=== PATIENT | female | born 1960 | race Two or more races ===

== ENCOUNTER 2020-06-29 13:05 | Outpatient (REF) | payer MEDICAID, SELFPAY ==
[2020-06-29 15:14] LABS: MANUAL DIFF FLAG NO
[2020-06-29 15:17] LABS: Basophils Absolute Auto 0.1 X10*3/uL (0.0-0.2); Basophils Percent Auto 0.4 % (0-2); Eosinophils Absolute Auto 0.2 X10*3/uL (0.0-0.4); Eosinophils Percent Auto 1.1 % (0-4); Hematocrit 47.2 % (37-47); Imm Gran Abs Auto 0.16 X10*3/uL (0.00-0.03); Imm Gran Pct Auto 0.8 % (0.0-0.4); Lymphocytes Percent Auto 26.3 % (20-40); Mean Corpuscular HGB Conc 33.9 g/dl (31.0-35.0); Mean Corpuscular Hemoglobin 29.1 pg (27.0-33.0); Mean Platelet Volume 9.5 fL (9.4-12.3); Monocytes Absolute Auto 1.2 X10*3/uL (0.1-1.2); Monocytes Percent Auto 6.1 % (2-11); Neutrophils Absolute Auto 12.4 X10*3/uL (2.0-8.3); Neutrophils Percent Auto 65.3 % (45-73); Platelet Count 297 X10*3/uL (160-400); Red Blood Count 5.49 X10*6/uL (4.20-5.50); Red Cell Distribution Width 12.5 % (11.0-16.0); White Blood Count 18.9 X10*3/uL (4.8-10.8)
[2020-06-29 15:42] LABS: Alanine Aminotransferase 17 U/L (0-31); Albumin Level 4.3 g/dL (3.5-5.0); Alkaline Phosphatase 77 U/L (39-117); Anion Gap 14 (12-20); Aspartate Amino Transferase 13 U/L (5-31); Bilirubin Direct 0.3 mg/dL (0.0-0.5); Bilirubin Total 0.8 mg/dL (0.0-1.0); Blood Urea Nitrogen 27 mg/dL (9-16); Calcium 9.7 mg/dL (8.4-10.2); Carbon Dioxide 31 mmol/L (22-29); Chloride 96 mmol/L (96-108); Estimated Glomerular Filt Rate 47; Glucose Random 187 mg/dL (60-115); Potassium 3.8 mmol/L (3.3-5.1); Sodium 137 mmol/L (135-145); Total Protein 7.1 g/dL (6.5-8.0)
[2020-06-30 04:31] LABS: HBS Num1 0.26 mIU/mL (0-7.99); HBc Num1 0.06 S/CO (0.00-0.79); HIV AB/AG Nonreactive (Nonreactive); HIV Num 1 0.04 S/CO (0.00-0.99); Hepatitis B Core Antibody Nonreactive (Nonreactive); ~HepC Num1 0.17 S/CO (0.00-0.79); ~Hepatitis B Surface Antibody NONREACTIVE (Nonreactive); ~Hepatitis C Antibody Nonreactive (Nonreactive)
[2020-06-30 04:50] LABS: HBsAGNum1 0.13 S/CO (0.00-0.99); Hepatitis B Surface Antigen Negative (Negative)
[2020-07-01 08:18] LABS: Hepatitis A Antibody IgG REACTIVE (Nonreactive); ~Hepatitis A Antibody IgG 14.73 S/CO (0.00-0.99)
[2020-07-01 22:02] LABS: TS Negative Control Passed; TS Panel A 0; TS Panel B 0; TS Positive Control Passed; TSpotTB Negative (SeeBelow)
== END 2020-06-29 13:06 | disposition home or self-care (01) ==
LOC: HO.LAB 13:05
PROVIDERS: PCP Family Medicine; Visit Provider Internal Medicine
DX: F11.99 Opioid use, unspecified with unspecified opioid-induced disorder (principal); E11.9 Type 2 diabetes mellitus without complications; E78.00 Pure hypercholesterolemia, unspecified; Z88.8 Allergy status to other drugs, medicaments and biological substances; Z79.82 Long term (current) use of aspirin; Z79.84 Long term (current) use of oral hypoglycemic drugs; Z79.899 Other long term (current) drug therapy; Z51.81 Encounter for therapeutic drug level monitoring
CPT/HCPCS: 36415; 80048; 80076; 80305; 85025; 86481; 86704; 86706; 86708; 86803; 87340; 87389; 99202

== ENCOUNTER → 2020-07-06 13:28 | Outpatient (BNVA) | payer MEDICAID, SELFPAY | PROVIDERS: Visit Provider Internal Medicine | DX: F11.99 Opioid use, unspecified with unspecified opioid-induced disorder (principal); D72.829 Elevated white blood cell count, unspecified; R76.8 Other specified abnormal immunological findings in serum; Z78.9 Other specified health status | CPT/HCPCS: 80305; 99212 ==

== ENCOUNTER → 2020-07-13 10:57 | Outpatient (BNVA) | payer MEDICAID, SELFPAY | PROVIDERS: Visit Provider Internal Medicine | DX: F11.99 Opioid use, unspecified with unspecified opioid-induced disorder (principal); Z51.81 Encounter for therapeutic drug level monitoring; Z78.9 Other specified health status; Z79.899 Other long term (current) drug therapy | CPT/HCPCS: 80305; 90471; 90746; 99212 ==

== ENCOUNTER → 2020-07-20 11:10 | Outpatient (BNVA) | payer MEDICAID, SELFPAY | PROVIDERS: Visit Provider Internal Medicine | DX: F11.99 Opioid use, unspecified with unspecified opioid-induced disorder (principal); Z51.81 Encounter for therapeutic drug level monitoring; Z78.9 Other specified health status; Z79.899 Other long term (current) drug therapy | CPT/HCPCS: 80305; 99212 ==

== ENCOUNTER → 2020-08-03 11:24 | Outpatient (BNVA) | payer MEDICAID, SELFPAY | PROVIDERS: PCP Family Medicine; Visit Provider Internal Medicine | DX: F11.99 Opioid use, unspecified with unspecified opioid-induced disorder (principal) | CPT/HCPCS: 80305; 99212 ==

== ENCOUNTER → 2020-08-17 11:01 | Outpatient (BNVA) | payer MEDICAID, SELFPAY | PROVIDERS: PCP Family Medicine; Visit Provider Internal Medicine | DX: F11.99 Opioid use, unspecified with unspecified opioid-induced disorder (principal) | CPT/HCPCS: 80305; 99212 ==

== ENCOUNTER → 2020-08-31 11:15 | Outpatient (BNVA) | payer MEDICAID, SELFPAY | PROVIDERS: PCP Family Medicine; Visit Provider Internal Medicine | DX: Z51.81 Encounter for therapeutic drug level monitoring (principal); F11.99 Opioid use, unspecified with unspecified opioid-induced disorder | CPT/HCPCS: 80305; 90471; 90746; 99211 ==

== ENCOUNTER → 2020-09-14 11:02 | Outpatient (BNVA) | payer MEDICAID, SELFPAY | PROVIDERS: Visit Provider Internal Medicine | DX: F11.20 Opioid dependence, uncomplicated (principal); Z51.81 Encounter for therapeutic drug level monitoring; Z79.899 Other long term (current) drug therapy | CPT/HCPCS: 80305; 99212 ==

== ENCOUNTER → 2020-09-28 11:08 | Outpatient (BNVA) | payer MEDICAID, SELFPAY | PROVIDERS: Visit Provider Internal Medicine | DX: F11.99 Opioid use, unspecified with unspecified opioid-induced disorder (principal) | CPT/HCPCS: 80305; 99211 ==

== ENCOUNTER → 2020-10-19 11:08 | Outpatient (BNVA) | payer MEDICAID, SELFPAY | PROVIDERS: PCP Family Medicine; Visit Provider Internal Medicine | DX: F11.99 Opioid use, unspecified with unspecified opioid-induced disorder (principal); Z23 Encounter for immunization; Z78.9 Other specified health status | CPT/HCPCS: 80305; 90471; 90746; 99211 ==

== ENCOUNTER → 2020-11-11 11:35 | Outpatient (BNVA) | payer MEDICAID, SELFPAY | PROVIDERS: PCP Family Medicine; Visit Provider Internal Medicine | DX: F11.99 Opioid use, unspecified with unspecified opioid-induced disorder (principal) | CPT/HCPCS: 80305; 99212 ==

== ENCOUNTER → 2020-12-16 11:15 | Outpatient (BNVA) | payer MEDICAID, SELFPAY | PROVIDERS: PCP Family Medicine; Visit Provider Internal Medicine | DX: Z51.81 Encounter for therapeutic drug level monitoring (principal) | CPT/HCPCS: 80305; 99211 ==

== ENCOUNTER → 2021-01-04 14:01 | Outpatient (BNVA) | payer MEDICAID, SELFPAY | PROVIDERS: PCP Family Medicine; Visit Provider Internal Medicine ==

== ENCOUNTER → 2021-01-18 11:10 | Outpatient (BNVA) | payer MEDICAID, SELFPAY | PROVIDERS: Visit Provider Internal Medicine | DX: Z51.81 Encounter for therapeutic drug level monitoring (principal); F14.10 Cocaine abuse, uncomplicated; F11.90 Opioid use, unspecified, uncomplicated | CPT/HCPCS: 80305; 99212 ==

== ENCOUNTER → 2021-02-12 11:33 | Outpatient (BNVA) | payer MEDICAID, SELFPAY | PROVIDERS: Visit Provider Internal Medicine | DX: F11.90 Opioid use, unspecified, uncomplicated (principal) | CPT/HCPCS: 80305; 99212 ==

== ENCOUNTER 2021-03-12 10:56 | Outpatient (REF) | payer MEDICAID, SELFPAY ==
[2021-03-12 18:25] LABS: Fentanyl, urine Not Detected (Not Detect)
== END 2021-03-12 10:57 | disposition home or self-care (01) ==
LOC: HO.LNP 10:56
PROVIDERS: Visit Provider Internal Medicine
DX: F11.20 Opioid dependence, uncomplicated (principal)
CPT/HCPCS: 80305; 80307; 99212

== ENCOUNTER → 2021-04-12 11:33 | Outpatient (BNVA) | payer MEDICAID, SELFPAY | PROVIDERS: Visit Provider Internal Medicine | DX: Z51.81 Encounter for therapeutic drug level monitoring (principal); F14.90 Cocaine use, unspecified, uncomplicated; F11.90 Opioid use, unspecified, uncomplicated | CPT/HCPCS: 80305; 99212 ==

== ENCOUNTER → 2021-05-10 10:54 | Outpatient (BNVA) | payer MEDICAID, SELFPAY | DX: Z51.81 Encounter for therapeutic drug level monitoring (principal); F11.20 Opioid dependence, uncomplicated | CPT/HCPCS: 80305; 99211 ==

== ENCOUNTER → 2021-06-07 11:13 | Outpatient (BNVA) | payer MEDICAID, SELFPAY | PROVIDERS: Visit Provider Internal Medicine | DX: F11.20 Opioid dependence, uncomplicated (principal) | CPT/HCPCS: 80305 ==

== ENCOUNTER → 2021-07-06 09:09 | Outpatient (BNVA) | payer MEDICAID, SELFPAY | PROVIDERS: Visit Provider Internal Medicine | DX: F11.20 Opioid dependence, uncomplicated (principal) | CPT/HCPCS: 80305 ==

== ENCOUNTER → 2021-08-04 10:50 | Outpatient (BNVA) | payer MEDICAID, SELFPAY | PROVIDERS: Visit Provider Internal Medicine | DX: Z51.81 Encounter for therapeutic drug level monitoring (principal); F11.20 Opioid dependence, uncomplicated | CPT/HCPCS: 80305; 99211 ==

== ENCOUNTER → 2021-08-31 11:03 | Outpatient (BNVA) | payer MEDICAID, SELFPAY | PROVIDERS: Visit Provider Internal Medicine | DX: F11.20 Opioid dependence, uncomplicated (principal); F14.90 Cocaine use, unspecified, uncomplicated | CPT/HCPCS: 80305; 99212 ==

== ENCOUNTER → 2021-09-28 11:07 | Outpatient (BNVA) | payer MEDICAID, SELFPAY | PROVIDERS: Visit Provider Internal Medicine | DX: Z51.81 Encounter for therapeutic drug level monitoring (principal); F11.20 Opioid dependence, uncomplicated | CPT/HCPCS: 80305; 99212 ==

== ENCOUNTER → 2021-10-26 10:56 | Outpatient (BNVA) | payer MEDICAID, SELFPAY | PROVIDERS: PCP Family Medicine; Visit Provider Internal Medicine | DX: F11.20 Opioid dependence, uncomplicated (principal) | CPT/HCPCS: 80305; 99212 ==

== ENCOUNTER → 2021-11-23 10:59 | Outpatient (BNVA) | payer MEDICAID, SELFPAY | PROVIDERS: PCP Family Medicine; Visit Provider Internal Medicine | DX: F11.20 Opioid dependence, uncomplicated (principal) | CPT/HCPCS: 80305; 99212 ==

== ENCOUNTER → 2021-12-27 11:39 | Outpatient (BNVA) | payer MEDICAID, SELFPAY | PROVIDERS: Visit Provider Internal Medicine | DX: F11.99 Opioid use, unspecified with unspecified opioid-induced disorder (principal); K59.00 Constipation, unspecified; Z51.81 Encounter for therapeutic drug level monitoring; Z71.51 Drug abuse counseling and surveillance of drug abuser | CPT/HCPCS: 99212 ==

== ENCOUNTER → 2022-02-02 11:03 | Outpatient (BNVA) | payer MEDICAID, SELFPAY | PROVIDERS: Visit Provider Internal Medicine | DX: Z51.81 Encounter for therapeutic drug level monitoring (principal); F11.20 Opioid dependence, uncomplicated | CPT/HCPCS: 99212 ==

== ENCOUNTER → 2022-04-05 11:19 | Outpatient (BNVA) | payer MEDICAID, SELFPAY | PROVIDERS: PCP Family Medicine; Visit Provider Nurse Practitioner Psychiatric/Mental Health | DX: F11.20 Opioid dependence, uncomplicated (principal) | CPT/HCPCS: 99212 ==

== ENCOUNTER → 2022-05-03 11:21 | Outpatient (BNVA) | payer MEDICAID, SELFPAY | PROVIDERS: PCP Family Medicine; Visit Provider Nurse Practitioner Psychiatric/Mental Health | DX: F11.20 Opioid dependence, uncomplicated (principal); F14.20 Cocaine dependence, uncomplicated; F17.210 Nicotine dependence, cigarettes, uncomplicated; E11.9 Type 2 diabetes mellitus without complications; E78.00 Pure hypercholesterolemia, unspecified; Z79.899 Other long term (current) drug therapy; Z51.81 Encounter for therapeutic drug level monitoring | CPT/HCPCS: 99212 ==

== ENCOUNTER → 2022-05-31 11:40 | Outpatient (BNVA) | payer MEDICAID, SELFPAY | PROVIDERS: PCP Family Medicine; Visit Provider Nurse Practitioner Psychiatric/Mental Health | DX: F11.20 Opioid dependence, uncomplicated (principal); F14.10 Cocaine abuse, uncomplicated | CPT/HCPCS: 80305; 99212 ==

== ENCOUNTER → 2022-07-06 11:52 | Outpatient (BNVA) | payer MEDICAID, SELFPAY | PROVIDERS: PCP Family Medicine; Visit Provider Nurse Practitioner Psychiatric/Mental Health | DX: F11.20 Opioid dependence, uncomplicated (principal); F14.10 Cocaine abuse, uncomplicated | CPT/HCPCS: 99212 ==

== ENCOUNTER → 2022-08-08 11:42 | Outpatient (BNVA) | payer OTHER, SELFPAY | PROVIDERS: PCP Family Medicine; Visit Provider Nurse Practitioner Psychiatric/Mental Health | DX: Z51.81 Encounter for therapeutic drug level monitoring (principal); F11.20 Opioid dependence, uncomplicated | CPT/HCPCS: 80305; 99212 ==

== ENCOUNTER → 2022-10-04 11:20 | Outpatient (BNVA) | payer OTHER, SELFPAY | PROVIDERS: PCP Family Medicine; Visit Provider Nurse Practitioner Psychiatric/Mental Health | DX: F11.20 Opioid dependence, uncomplicated (principal); F14.90 Cocaine use, unspecified, uncomplicated | CPT/HCPCS: 80305; 99212 ==

== ENCOUNTER 2022-12-02 11:23 | Outpatient (AMB) | payer OTHER, SELFPAY ==
--- NOTE | 2022-12-02 11:25 | A.OFFVIS_ITS ---
Intake Vital Signs 12/02/22 11:31 BP 128/72 Blood Pressure Location Lt radial Position Sitting Pulse 92 Pulse Source Pulse Oximeter Pulse Oximetry (%) 97 Oxygen Delivery Method Room Air Intake Visit Reasons: MAT Visit Intake Note: the patient presents for a mat visit Waistband Setter Required: No Allergies lorazepam Allergy (Mild, Verified 12/02/22 11:32) Itching, rash Do you need a note to return to daycare/school/sports/work: No HPI MAT Visit HPI Details Pt presents for OUD treatment follow up Currently being prescribed Suboxone 8mg BID Denies any side effects related to medication Doing well with recovery [facility] Medical History Cocaine use disorder Diabetes Hepatitis A antibody positive Hypercholesterolemia Leukocytosis Not immune to hepatitis B virus Opioid use disorder Social History Alcohol intake: never Cigarettes Per Day: 8 Years Smoked: 40 Review of Systems Const Reports as per HPI and Reports no additional complaints Physical Exam Vital Signs: Last Vital Signs Pulse 92 12/02/22 11:31 BP 128/72 12/02/22 11:31 Pulse Ox 97 12/02/22 11:31 Oxygen Delivery Method Room Air 12/02/22 11:31 Const General: cooperative and healthy appearing Psych Appearance: well kempt Attitude: cooperative Thought content: Normal thought content present Insight: Fair insight present (Psych) Judgement: Fair judgement present (Psych) Assessment & Plan Assessment & Plan (1) Opioid use disorder: Code(s): F11.99 - Opioid use, unspecified with unspecified opioid-induced disorder Plan: * continue suboxone at current dose * risk reduction discussion related to cocaine use * follow up 8 weeks * lab work ordered --will be completed at [facility] via primary care provider Medications: Refilled buprenorphine-naloxone 8-2 mg (Suboxone) 1 film sublingual BID 60 ea 1RF 30 days Coding Level of Care Code Est Pt Level 4 (27465) Diagnoses Opioid use disorder F11.99
[2022-12-02 11:31] VITALS: BP 128/72; PULSE 92; O2SAT 97
== END 2022-12-02 11:59 | disposition home or self-care (01) ==
LOC: HO.HCC 11:23
PROVIDERS: PCP Family Medicine; Visit Provider Nurse Practitioner Psychiatric/Mental Health
DX: F11.99 Opioid use, unspecified with unspecified opioid-induced disorder (principal)
CPT/HCPCS: 99214

== ENCOUNTER → 2022-12-02 11:23 | Outpatient (BNVA) | payer OTHER, SELFPAY | PROVIDERS: PCP Family Medicine; Visit Provider Nurse Practitioner Psychiatric/Mental Health | DX: Z51.81 Encounter for therapeutic drug level monitoring (principal); F11.20 Opioid dependence, uncomplicated | CPT/HCPCS: 99212 ==

== ENCOUNTER 2023-02-06 11:07 | Outpatient (AMB) | payer OTHER, SELFPAY ==
--- NOTE | 2023-02-06 11:08 | MHC.OFFVIS ---
Intake Vital Signs 02/06/23 11:14 BP 128/70 Blood Pressure Location Lt radial Position Sitting Pulse 74 Pulse Source Pulse Oximeter Pulse Oximetry (%) 98 Oxygen Delivery Method Room Air Intake Visit Reasons: MAT Visit Intake Note: The patient presents for a mat visit Internal Controls Specialist Required: No Allergies lorazepam Allergy (Mild, Verified 02/06/23 11:09) Itching, rash Do you need a note to return to daycare/school/sports/work: No HPI MAT Visit HPI Details Patient presents for follow up Doing well with recovery Currently prescribed suboxone 8mg BID no questions or concerns at this time [facility] Medical History Cocaine use disorder Diabetes Hepatitis A antibody positive Hypercholesterolemia Leukocytosis Not immune to hepatitis B virus Opioid use disorder Social History Alcohol intake: never Cigarettes Per Day: 8 Years Smoked: 40 Review of Systems Const Reports as per HPI and Reports no additional complaints Physical Exam Vital Signs: Last Vital Signs Pulse 74 02/06/23 11:14 BP 128/70 02/06/23 11:14 Pulse Ox 98 02/06/23 11:14 Oxygen Delivery Method Room Air 02/06/23 11:14 Const General: cooperative and healthy appearing Psych Appearance: well kempt Attitude: cooperative Thought content: Normal thought content present Insight: Fair insight present (Psych) Judgement: Fair judgement present (Psych) Assessment & Plan Assessment & Plan (1) Opioid use disorder: Code(s): F11.99 - Opioid use, unspecified with unspecified opioid-induced disorder Plan: continue suboxone at current dose risk reduction discussion related to cocaine use follow up 8 weeks Medications: Refilled buprenorphine-naloxone 8-2 mg (Suboxone) 1 film sublingual BID 60 ea 1RF 30 days Coding Level of Care Code Est Pt Level 3 (63490) Diagnoses Opioid use disorder F11.99
[2023-02-06 11:14] VITALS: BP 128/70; PULSE 74; O2SAT 98
== END 2023-02-06 11:51 | disposition home or self-care (01) ==
LOC: HO.HCC 11:07
PROVIDERS: PCP Family Medicine; Visit Provider Nurse Practitioner Psychiatric/Mental Health
DX: F11.99 Opioid use, unspecified with unspecified opioid-induced disorder (principal)
CPT/HCPCS: 99213

== ENCOUNTER → 2023-02-06 11:07 | Outpatient (BNVA) | payer OTHER, SELFPAY | PROVIDERS: PCP Family Medicine; Visit Provider Nurse Practitioner Psychiatric/Mental Health | DX: Z51.81 Encounter for therapeutic drug level monitoring (principal); F11.20 Opioid dependence, uncomplicated | CPT/HCPCS: 99212 ==

== ENCOUNTER 2023-04-11 11:00 | Outpatient (AMB) | payer OTHER, SELFPAY ==
--- NOTE | 2023-04-11 11:06 | A.OFFVIS_ITS ---
Intake Vital Signs 04/11/23 11:14 BP 126/70 Blood Pressure Location Lt radial Position Sitting Pulse 94 Pulse Source Pulse Oximeter Pulse Oximetry (%) 93 Oxygen Delivery Method Room Air Intake Visit Reasons: MAT Visit Intake Note: the patient presents for a mat visit Supervisor Phosphoric Acid Required: No Allergies lorazepam Allergy (Mild, Verified 04/11/23 11:15) Itching, rash Do you need a note to return to daycare/school/sports/work: No HPI MAT Visit HPI Details Patient presents for follow up Tolerating suboxone --no side effects reported no questions or concerns at this time [facility] Medical History Cocaine use disorder Diabetes Hepatitis A antibody positive Hypercholesterolemia Leukocytosis Not immune to hepatitis B virus Opioid use disorder Social History Alcohol intake: never Cigarettes Per Day: 8 Years Smoked: 40 Review of Systems Const Reports as per HPI and Reports no additional complaints Physical Exam Vital Signs: Last Vital Signs Pulse 94 04/11/23 11:14 BP 126/70 04/11/23 11:14 Pulse Ox 93 04/11/23 11:14 Oxygen Delivery Method Room Air 04/11/23 11:14 Const General: cooperative and healthy appearing Psych Appearance: well kempt Attitude: cooperative Thought content: Normal thought content present Insight: Fair insight present (Psych) Judgement: Fair judgement present (Psych) Assessment & Plan Assessment & Plan (1) Opioid use disorder: Code(s): F11.99 - Opioid use, unspecified with unspecified opioid-induced disorder Plan: * continue suboxone at current dose * risk reduction discussion related to cocaine use * follow up 8 weeks Coding Level of Care Code Est Pt Level 3 (55350) Diagnoses Opioid use disorder F11.99
[2023-04-11 11:14] VITALS: BP 126/70; PULSE 94; O2SAT 93
== END 2023-04-11 11:52 | disposition home or self-care (01) ==
PROVIDERS: PCP Family Medicine; Visit Provider Nurse Practitioner Psychiatric/Mental Health
DX: F11.99 Opioid use, unspecified with unspecified opioid-induced disorder (principal)
CPT/HCPCS: 99213

== ENCOUNTER → 2023-04-11 11:00 | Outpatient (BNVA) | payer OTHER, SELFPAY | PROVIDERS: PCP Family Medicine; Visit Provider Nurse Practitioner Psychiatric/Mental Health | DX: F11.20 Opioid dependence, uncomplicated (principal); F14.20 Cocaine dependence, uncomplicated; F17.210 Nicotine dependence, cigarettes, uncomplicated; Z51.81 Encounter for therapeutic drug level monitoring; Z79.899 Other long term (current) drug therapy | CPT/HCPCS: 99212 ==

== ENCOUNTER 2023-07-10 13:38 | Outpatient (AMB) | payer OTHER, SELFPAY ==
[2023-07-10 13:45] VITALS: BP 130/60; PULSE 103; RESP 19; O2SAT 98
--- NOTE | 2023-07-10 13:45 | A.OFFVISCC_ITS ---
Intake Vital Signs 07/10/23 13:45 BP 130/60 Blood Pressure Location Rt radial Position Sitting Respiration 19 Pulse 103 H Pulse Source Pulse Oximeter Pulse Oximetry (%) 98 Intake Visit Reasons: mat visit Allergies lorazepam Allergy (Mild, Verified 04/11/23 11:15) Itching, rash HPI mat visit HPI Details Patient presents for follow up Currently prescribed Suboxone 8mg BID Regarding cocaine use--still using 2-3 days/week. reports that she uses test strips for her cocaine No issues related to suboxone [facility] Medical History Cocaine use disorder Diabetes Hepatitis A antibody positive Hypercholesterolemia Leukocytosis Not immune to hepatitis B virus Opioid use disorder Social History Alcohol intake: never Cigarettes Per Day: 8 Years Smoked: 40 Review of Systems Const Reports as per HPI and Reports no additional complaints Physical Exam Vital Signs: Last Vital Signs Pulse 103 H 07/10/23 13:45 Resp 19 07/10/23 13:45 BP 130/60 07/10/23 13:45 Pulse Ox 98 07/10/23 13:45 Const General: cooperative and healthy appearing Psych Appearance: well kempt Attitude: cooperative Thought content: Normal thought content present Insight: Fair insight present (Psych) Judgement: Fair judgement present (Psych) Assessment & Plan Assessment & Plan (1) Opioid use disorder: Code(s): F11.99 - Opioid use, unspecified with unspecified opioid-induced disorder Plan: * continue suboxone at current dose * risk reduction discussion related to cocaine use * follow up 8 weeks Coding Level of Care Code Est Pt Level 3 (69997) Diagnoses Opioid use disorder F11.99
== END 2023-07-10 14:17 | disposition home or self-care (01) ==
PROVIDERS: PCP Family Medicine; Visit Provider Nurse Practitioner Psychiatric/Mental Health
DX: F11.99 Opioid use, unspecified with unspecified opioid-induced disorder (principal)
CPT/HCPCS: 99213

== ENCOUNTER → 2023-07-10 13:38 | Outpatient (BNVA) | payer OTHER, SELFPAY | PROVIDERS: PCP Family Medicine; Visit Provider Nurse Practitioner Psychiatric/Mental Health | DX: F11.20 Opioid dependence, uncomplicated (principal) | CPT/HCPCS: 99212 ==

== ENCOUNTER 2023-09-11 10:51 | Outpatient (AMB) | payer OTHER, SELFPAY ==
--- NOTE | 2023-09-11 10:58 | A.OFFVISCC_ITS ---
Vital Signs 09/11/23 11:00 BP 128/74 Blood Pressure Location Lt brachial Position Sitting Pulse 73 Pulse Source Pulse Oximeter Pulse Oximetry (%) 97 Oxygen Delivery Method Room Air Intake Visit Reasons: mat visit Allergies lorazepam Allergy (Mild, Verified 09/11/23 11:00) Itching, rash HPI HPI mat visit: Details: Patient presents for follow up Currently prescribed Suboxone 8mg BID No issues related to medication Looking for new PCP --hers is in [place] and transportation is a challenge Will be going to [facility] to re-establish care Up to date with colonoscopy. has not had mammogram in [address] [facility] Medical History Cocaine use disorder Diabetes Hepatitis A antibody positive Hypercholesterolemia Leukocytosis Not immune to hepatitis B virus Opioid use disorder Social History Alcohol intake: never Cigarettes Per Day: 8 Years Smoked: 40 Review of Systems Const Reports as per HPI Physical Exam Vital Signs: Last Vital Signs Pulse 73 09/11/23 11:00 BP 128/74 09/11/23 11:00 Pulse Ox 97 09/11/23 11:00 Oxygen Delivery Method Room Air 09/11/23 11:00 Const General: cooperative and healthy appearing Psych Appearance: well kempt Attitude: cooperative Thought content: Normal thought content present Insight: Fair insight present (Psych) Judgement: Fair judgement present (Psych) Assessment & Plan Assessment & Plan (1) Opioid use disorder: Code(s): F11.99 - Opioid use, unspecified with unspecified opioid-induced disorder Category: Medical Plan: * continue suboxone at current dose * risk reduction discussion related to cocaine use -using very little /infrequently * follow up 8 weeks Medications: Refilled buprenorphine-naloxone 8-2 mg (Suboxone) 1 film sublingual BID 60 ea 1RF 30 days
[2023-09-11 11:00] VITALS: BP 128/74; PULSE 73; O2SAT 97
== END 2023-09-11 11:31 | disposition home or self-care (01) ==
PROVIDERS: PCP Family Medicine; Visit Provider Nurse Practitioner Psychiatric/Mental Health
DX: F11.99 Opioid use, unspecified with unspecified opioid-induced disorder (principal)
CPT/HCPCS: 99213

== ENCOUNTER → 2023-09-11 10:51 | Outpatient (BNVA) | payer OTHER, SELFPAY | PROVIDERS: PCP Family Medicine; Visit Provider Nurse Practitioner Psychiatric/Mental Health | DX: F11.20 Opioid dependence, uncomplicated (principal) | CPT/HCPCS: 99212 ==

== ENCOUNTER 2023-11-07 14:31 | Outpatient (AMB) | payer MEDICAID, SELFPAY ==
--- NOTE | 2023-11-07 14:31 | A.OFFVISCC_ITS ---
Vital Signs 11/07/23 14:34 BP 130/60 Blood Pressure Location Rt brachial Position Sitting Pulse Oximetry (%) 98 Oxygen Delivery Method Room Air Intake Visit Reasons: Mat visit Allergies lorazepam Allergy (Mild, Verified 09/11/23 11:00) Itching, rash HPI HPI Mat visit: Details: Patient presents for follow up Currently prescribed Suboxone 8mg BID No issues with current dose Considering changing her primary care back to [facility] as she is having transportation issues and her current PCP is in [facility] Medical History (Updated 11/07/23 @ 15:12 by Elisabeth Ibarra CNP) Cocaine use disorder Not immune to hepatitis B virus Hepatitis A antibody positive Leukocytosis Hypercholesterolemia Diabetes Opioid use disorder Social History Alcohol intake: never Cigarettes Per Day: 8 Years Smoked: 40 Review of Systems Const Reports as per HPI and Reports no additional complaints Physical Exam Vital Signs: Last Vital Signs BP 130/60 11/07/23 14:34 Pulse Ox 98 11/07/23 14:34 Oxygen Delivery Method Room Air 11/07/23 14:34 Const General: cooperative and no acute distress Nutritional Appearance: average body habitus Orientation/consciousness: patient oriented x3 Limitations: no limitations Resp Effort & Inspection: normal respiratory effort and audible wheezes (slight) Neuro General: patient oriented x3 Assessment & Plan Assessment & Plan (1) Alcohol use disorder, moderate, in sustained remission: Code(s): F10.21 - Alcohol dependence, in remission Category: Medical Plan: * continue suboxone at current dose * follow up 4 weeks * refill sent to pharmacy Medications: Refilled buprenorphine-naloxone 8-2 mg (Suboxone) 1 film sublingual BID 60 ea 1RF 30 days
[2023-11-07 14:34] VITALS: BP 130/60; O2SAT 98
== END 2023-11-07 15:10 | disposition home or self-care (01) ==
PROVIDERS: PCP Family Medicine; Visit Provider Nurse Practitioner Psychiatric/Mental Health
DX: F10.21 Alcohol dependence, in remission (principal)
CPT/HCPCS: 99213

== ENCOUNTER → 2023-11-07 14:31 | Outpatient (BNVA) | payer MEDICARE, MEDICAID, SELFPAY | PROVIDERS: PCP Family Medicine; Visit Provider Nurse Practitioner Psychiatric/Mental Health | DX: F10.21 Alcohol dependence, in remission (principal); F14.20 Cocaine dependence, uncomplicated; F11.20 Opioid dependence, uncomplicated; Z79.899 Other long term (current) drug therapy | CPT/HCPCS: 99212 ==

== ENCOUNTER 2024-01-03 14:35 | Outpatient (AMB) | payer MEDICARE, MEDICAID, SELFPAY ==
--- NOTE | 2024-01-03 14:45 | A.OFFVISCC_ITS ---
Intake Visit Reasons: Mat visit Allergies lorazepam Allergy (Mild, Verified 09/11/23 11:00) Itching, rash HPI HPI Mat visit: Details: Patient presents for follow up Currently prescribed suboxone 8mg BID Recently metformin 500mg 2 tabs BID trazodone 100mg QHS stopped lisinopril started losartan 25mg QD trulicity DM medications adjusted \ Reports feeling much better PFSH Medical History (Updated 01/12/24 @ 17:59 by Elisabeth Ibarra CNP) Hypertension Cocaine use disorder Not immune to hepatitis B virus Hepatitis A antibody positive Leukocytosis Hypercholesterolemia Diabetes Opioid use disorder Social History Alcohol intake: never Cigarettes Per Day: 8 Years Smoked: 40 Review of Systems Const Reports as per HPI and Reports no additional complaints Physical Exam Const General: cooperative, healthy appearing and well groomed Assessment & Plan Assessment & Plan (1) Opioid use disorder, moderate, in sustained remission: Code(s): F11.21 - Opioid dependence, in remission Category: Medical Plan: * continue suboxone at current dose * risk reduction discussion related to cocaine * BP machine ordered as previous rx not covered by insurance Medications: New blood pressure monitor As directed 1 ea 0RF I10 - Essential (primary) hypertension Refilled buprenorphine-naloxone 8-2 mg (Suboxone) 1 film sublingual BID 60 ea 2RF 30 days
== END 2024-01-03 15:24 | disposition home or self-care (01) ==
PROVIDERS: PCP Family Medicine; Visit Provider Nurse Practitioner Psychiatric/Mental Health
DX: F11.21 Opioid dependence, in remission (principal)
CPT/HCPCS: 99214

== ENCOUNTER → 2024-01-03 14:35 | Outpatient (BNVA) | payer MEDICARE, MEDICAID, SELFPAY | PROVIDERS: PCP Family Medicine; Visit Provider Nurse Practitioner Psychiatric/Mental Health | DX: F11.21 Opioid dependence, in remission (principal); Z51.81 Encounter for therapeutic drug level monitoring; Z79.84 Long term (current) use of oral hypoglycemic drugs; Z79.899 Other long term (current) drug therapy | CPT/HCPCS: 99212 ==

== ENCOUNTER 2024-03-25 14:55 | Outpatient (AMB) | payer MEDICARE, MEDICAID, SELFPAY ==
[2024-03-25 15:02] VITALS: BP 140/85
--- NOTE | 2024-03-25 15:02 | MHC.AM.SUB ---
Vital Signs 03/25/24 15:02 BP 140/85 H Intake Visit Reasons: Mat visit Allergies lorazepam Allergy (Mild, Verified 09/11/23 11:00) Itching, rash HPI HPI Mat visit: Details: Patient presents for follow up Currently prescribed Suboxone 8mg BID No issues related to medication looking for new PCP walked to appt today and I am so happy I did, I needed that Review of Systems Const Reports as per HPI Physical Exam Vital Signs: Last Vital Signs BP 140/85 H 03/25/24 15:02 Const General: cooperative, healthy appearing and well groomed Psych Appearance: well kempt Speech and movement: Normal speech and movement present Affect: normal affect Attitude: cooperative Thought process: Circumstantial thought process present Thought content: Normal thought content present Insight: Fair insight present (Psych) Judgement: Good judgement present (Psych) Assessment & Plan Assessment & Plan (1) Opioid use disorder, moderate, in sustained remission: Code(s): F11.21 - Opioid dependence, in remission Category: Medical Plan: continue suboxone at current dose follow up 3 months labs ordered today Orders: Orders Comprehensive Met. Panel 03/26/24 Z79.899 - Other meterman (current) drug therapy [facility] Medical History (Updated 01/12/24 @ 17:59 by Elisabeth Ibarra CNP) Hypertension Cocaine use disorder Not immune to hepatitis B virus Hepatitis A antibody positive Leukocytosis Hypercholesterolemia Diabetes Opioid use disorder Social History Alcohol intake: never Cigarettes Per Day: 8 Years Smoked: 40
== END 2024-03-25 15:28 | disposition home or self-care (01) ==
PROVIDERS: PCP Family Medicine; Visit Provider Nurse Practitioner Psychiatric/Mental Health
DX: F11.21 Opioid dependence, in remission (principal)
CPT/HCPCS: 99213

== ENCOUNTER 2024-03-25 14:55 | Outpatient (REF) | payer MEDICARE, MEDICAID, SELFPAY | END 2024-03-25 14:56 | disposition home or self-care (01) | LOC: HO.LAB 14:55 | PROVIDERS: PCP Family Medicine; Visit Provider Nurse Practitioner Psychiatric/Mental Health | DX: F11.20 Opioid dependence, uncomplicated (principal) | CPT/HCPCS: 99212 ==

== ENCOUNTER 2024-03-26 08:55 | Outpatient (REF) | payer MEDICARE, MEDICAID, SELFPAY ==
[2024-03-26 11:06] LABS: Alanine Aminotransferase 15 U/L (0-31); Alkaline Phosphatase 102 U/L (39-117); Anion Gap 9 (12-20); Aspartate Amino Transferase 15 U/L (5-31); Bilirubin Total 0.5 mg/dL (0.0-1.0); Blood Urea Nitrogen 15 mg/dL (9-16); Carbon Dioxide 35 mmol/L (22-29); Chloride 100 mmol/L (96-108); Estimated Glomerular Filt Rate > 60; Glucose Random 154 mg/dL (60-115); Potassium 4.4 mmol/L (3.3-5.1); Sodium 140 mmol/L (135-145); Total Protein 7.4 g/dL (6.5-8.0)
== END 2024-03-26 08:56 | disposition home or self-care (01) ==
LOC: HO.LAB 08:55
PROVIDERS: PCP Family Medicine; Visit Provider Nurse Practitioner Psychiatric/Mental Health
DX: Z79.899 Other long term (current) drug therapy (principal)
CPT/HCPCS: 36415; 80053

== ENCOUNTER 2024-07-05 09:18 | Outpatient (AMB) | payer MEDICARE, MEDICAID, SELFPAY ==
[2024-07-05 09:23] VITALS: BP 140/80; PULSE 88; O2SAT 92
--- NOTE | 2024-07-05 09:23 | MHC.AM.SUB ---
Vital Signs 07/05/24 09:23 BP 140/80 H Blood Pressure Location Rt brachial Position Sitting Pulse 88 Pulse Source Pulse Oximeter Pulse Oximetry (%) 92 Oxygen Delivery Method Room Air Intake Visit Reasons: MAT visit Allergies lorazepam Allergy (Mild, Verified 09/11/23 11:00) Itching, rash HPI HPI MAT visit: Details: Patient presents for follow up Currently prescribed Suboxone 8mg BID Due to insurance change, formulation had to change from films to tabs Reviewed with patient, that tabs are also SL Diabetes management improving patient becoming more familiar with sx of hypoglyciemia Review of Systems Const Reports as per HPI and Reports no additional complaints Physical Exam Vital Signs: Last Vital Signs Pulse 88 07/05/24 09:23 BP 140/80 H 07/05/24 09:23 Pulse Ox 92 07/05/24 09:23 Oxygen Delivery Method Room Air 07/05/24 09:23 Const General: cooperative, healthy appearing and well groomed Psych Appearance: well kempt Speech and movement: Normal speech and movement present Affect: normal affect Attitude: cooperative Thought process: Circumstantial thought process present Thought content: Normal thought content present Insight: Fair insight present (Psych) Judgement: Good judgement present (Psych) [facility] Medical History (Updated 01/12/24 @ 17:59 by Elisabeth Ibarra CNP) Hypertension Cocaine use disorder Not immune to hepatitis B virus Hepatitis A antibody positive Leukocytosis Hypercholesterolemia Diabetes Opioid use disorder Social History Alcohol intake: never Cigarettes Per Day: 8 Years Smoked: 40 Assessment & Plan Assessment & Plan (1) Opioid use disorder, moderate, in sustained remission: Code(s): F11.21 - Opioid dependence, in remission Category: Medical Plan: continue suboxone at current dose follow up 3 months
--- OUTSIDE RECORDS SUMMARY | 2024-07-05 09:54 | XMS_ITS | Clinical Summary ---
Author Organization [facility] it Address [address] [place] [address] Care Team Providers Care Payroll Accounting Specialist Name Role Phone Unavailable Primary Care Provider Unavailabl e Social History Tobacco Use Types Packs/Day Years Used Date Smoking Tobacco: Never Assessed Comments Unknown Sex and Gender Information Value Date Recorded Sex Assigned at Not on file Legal Sex Female 2:26 PM EST Gender Identity Not on file Sexual Orientation Not on file Plan of Treatment Health Maintenance Due Date Last Done Comments Breast Cancer Screening 1960 DTaP,Tdap,and Td Vaccines (1 - Tdap) 1977 Cervical Cancer Screening: P ap Smear 10/23/1979 Pneumococcal Vaccine: 50+ Ye ars (1 of 1 - PCV) 2008 Zoster Vaccines (1 of 2) 2008 COVID-19 Vaccine ( - 2023-2 5 season) 2024 Influenza Vaccine (#1) 2024 RSV Immunization Patients 60 + Years Old (1 - 1-dose 75+ series) 2033 HIB Vaccines Aged Out No longer eligi ble based on patient's age to complete this topic HPV Vaccines Aged Out No longer eligi ble based on patient's age to complete this topic Hepatitis A Vaccines Aged Out No long er eligible based on patient's age to complete this topic Hepatitis B Vaccines Aged Out No long er eligible based on patient's age to complete this topic IPV Vaccines Aged Out No longer eligi ble based on patient's age to complete this topic MMR Vaccines Aged Out No longer eligi ble based on patient's age to complete this topic Meningococcal ACWY Vaccine Aged Out N o longer eligible based on patient's age to complete this topic Meningococcal B Vacine Aged Out No lo nger eligible based on patient's age to complete this topic Pneumococcal Vaccine: Pediat rics (0 to 5 Years) and At-Risk Patients (6 to 64 Years) Aged Out No longer eligible b ased on patient's age to complete this topic RSV Immunization Patients Un vero 20 months Aged Out No longer eligible b ased on patient's age to complete this topic Varicella Vaccines Aged Out No longer eligible based on patient's age to complete this topic Advance Directives Documents on File Type Date Recorded Patient Clinical Laboratory Assistant Expl anation Health Care Decision (hx) 06/28/2020 AD BONDS DIRECTIVE Health Care Decision (hx) 06/25/2020 AD BONDS DIRECTIVE
== END 2024-07-05 09:49 | disposition home or self-care (01) ==
PROVIDERS: PCP Family Medicine; Visit Provider Nurse Practitioner Psychiatric/Mental Health
DX: F11.21 Opioid dependence, in remission (principal)
CPT/HCPCS: 99213

== ENCOUNTER → 2024-07-05 09:18 | Outpatient (BNVA) | payer MEDICARE, MEDICAID, SELFPAY | PROVIDERS: PCP Family Medicine; Visit Provider Nurse Practitioner Psychiatric/Mental Health | DX: F11.20 Opioid dependence, uncomplicated (principal) | CPT/HCPCS: 99212 ==

== ENCOUNTER 2024-09-27 11:08 | Outpatient (AMB) | payer MEDICARE, MEDICAID, SELFPAY ==
--- NOTE | 2024-09-27 11:08 | A.OFFVIS_ITS ---
Vital Signs 09/27/24 11:14 Height 5 ft 2 in Weight 181 lb BMI 33.1 Pulse 90 Pulse Oximetry (%) 98 Oxygen Delivery Method Room Air Intake Visit Reasons: MAT visit Allergies lorazepam Allergy (Mild, Verified 09/27/24 11:15) Itching, rash HPI HPI MAT visit: Details: She has been doing well and not using opioids [facility] Medical History Hypertension Cocaine use disorder Not immune to hepatitis B virus Hepatitis A antibody positive Leukocytosis Hypercholesterolemia Diabetes Opioid use disorder Social History Alcohol intake: never Cigarettes Per Day: 8 Years Smoked: 40 Review of Systems Const All systems reviewed & are unremarkable except as noted in HPI and below Physical Exam Vital Signs: Last Vital Signs Pulse 90 09/27/24 11:14 Pulse Ox 98 09/27/24 11:14 Oxygen Delivery Method Room Air 09/27/24 11:14 BMI result Body Mass Index 33.1 Const General: cooperative Assessment & Plan Assessment & Plan (1) Opioid use disorder, moderate, in sustained remission: Code(s): F11.21 - Opioid dependence, in remission Category: Medical Plan: Would continue Suboxone Plan See as scheduled. Medications: New buprenorphine-naloxone 8-2 mg 1 tab sublingual BID 60 tabs 1RF 30 days Coding Level of Care Code Est Pt Level 3 (09847) Diagnoses Opioid use disorder, moderate, in sustained remission F11.21
--- OUTSIDE RECORDS SUMMARY | 2024-09-27 11:13 | XMS_ITS | Clinical Summary ---
Author Organization [facility] ity Address [address] [place] [address] Care Team Providers Care Building Performance Specialist Name Role Phone Unavailable Primary Care [...] - 2023-2 5 season) 2024 Influenza Vaccine (Season Ended) 2025 RSV Immunization Adult Patie nts (1 - 1-dose 75+ series) 2033 HIB [...] age to complete this topic Meningococcal B Vaccine Aged Out No l onger eligible based on patient's age to complete [...] Documents on File Type Date Recorded Patient Line Painting Machine Operator Expl anation Health Care Decision (hx) 06/28/2020 AD BONDS DIRECTIVE Health Care Decision (hx) 06/25/2020 AD BONDS DIRECTIVE
[2024-09-27 11:14] VITALS: PULSE 90; O2SAT 98; BMI 33.1
== END 2024-09-27 14:18 | disposition home or self-care (01) ==
LOC: HO.HCC 11:08
PROVIDERS: PCP Family Medicine; Visit Provider Internal Medicine
DX: F11.21 Opioid dependence, in remission (principal)
CPT/HCPCS: 99213

== ENCOUNTER → 2024-09-27 11:08 | Outpatient (BNVA) | payer MEDICARE, MEDICAID, SELFPAY | PROVIDERS: PCP Family Medicine; Visit Provider Internal Medicine | DX: F11.21 Opioid dependence, in remission (principal); Z51.81 Encounter for therapeutic drug level monitoring | CPT/HCPCS: 99212 ==

== ENCOUNTER 2024-11-18 10:50 | Outpatient (AMB) | payer MEDICARE, MEDICAID, SELFPAY ==
--- NOTE | 2024-11-18 10:49 | A.OFFVIS_ITS ---
Vital Signs 11/18/24 10:50 Height 5 ft 2 in Weight 182 lb BMI 33.3 BP 140/80 H Pulse 72 Pulse Source Pulse Oximeter Pulse Oximetry (%) 97 Oxygen Delivery Method Room Air Intake Visit Reasons: MAT visit 2 month Allergies lorazepam Allergy (Mild, Verified 11/18/24 10:54) Itching, rash Medication List - Last Reconciled 11/18/24 by ARMANDO Wilson atorvastatin (Lipitor) 40 mg PO DAILY blood pressure monitor As directed buprenorphine-naloxone 8-2 mg 1 tab sublingual BID 30 days docusate sodium (Colace) 100 mg PO DAILY 30 days dulaglutide (Trulicity) 1.5 mg subcut QWEEK lactulose 10 grams (15 mL) PO BEDTIME PRN lisinopril 10 mg PO DAILY metformin 1,000 mg PO BID naloxone 4 mg/actuation (Narcan) 4 mg intranasal Q2M PRN HPI Comments Details: The patient is a 64-year-old female presents for a follow-up visit and reports the buprenorphine-naloxone 8-2 mg, twice per day is working well and feels stabl e. Denies opiate, alcohol, or other substances at present time of visit. Does acknowledge smoking up to 5 cigarettes per day. [facility] Medical History Hypertension Cocaine use disorder Not immune to hepatitis B virus Hepatitis A antibody positive Leukocytosis Hypercholesterolemia Diabetes Opioid use disorder Social History (Updated 11/18/24 @ 11:06 by ARMANDO Wilson) Alcohol intake: never Cigarettes Per Day: 5 Years Smoked: 40 Review of Systems Const All systems reviewed & are unremarkable except as noted in HPI and below Physical Exam Vital Signs: Last Vital Signs Pulse 72 11/18/24 10:50 BP 140/80 H 11/18/24 10:50 Pulse Ox 97 11/18/24 10:50 Oxygen Delivery Method Room Air 11/18/24 10:50 BMI result Body Mass Index 33.3 Const General: cooperative Psych Appearance: well kempt Mental Status: mental status grossly normal Speech and movement: Normal speech and movement present Affect: normal affect Attitude: cooperative Thought process: Normal thought process present Thought content: Normal thought content present (Denies suicidal or homicidal ideation.) Insight: Good insight present (Psych) Judgement: Good judgement present (Psych) Assessment & Plan Assessment & Plan (1) Opioid use disorder, moderate, in sustained remission: Code(s): F11.21 - Opioid dependence, in remission Category: Medical Plan The plan of care is to continue buprenorphine-naloxone 8-2 mg, twice per day. Follow up in one month or sooner, if needed. Education provided re: reducing the amount of cigaretts per day and smoking cessation. Mental health referral discussed and patient declines, reports not interested. Medications: Refilled buprenorphine-naloxone 8-2 mg 1 tab sublingual BID 60 tabs 1RF 30 days Patient Instructions: - Continue with buprenorphine-naloxone 8-2 mg, twice per day. - Reduce the amount of cigarettes per day. - Call with questions or concerns to the [facility]. - Follow one in one month or sooner, if needed. Coding Level of Care Code Est Pt Level 3 (94913) Diagnoses Opioid use disorder, moderate, in sustained remission F11.21
[2024-11-18 10:50] VITALS: BP 140/80; PULSE 72; O2SAT 97; BMI 33.3
--- OUTSIDE RECORDS SUMMARY | 2024-11-18 11:46 | XMS_ITS | Patient Health Record ---
Author Organization [facility] Address [address] [place] [id number] Care Team Providers Care Him Specialist Name Role Phone Austin Jane Unavailable [phone] Reason For Referral No Information Plan Of Treatment No Information
--- OUTSIDE RECORDS SUMMARY | 2024-11-18 11:46 | XMS_ITS | Clinical Summary ---
Author Organization [facility] ity Address [address] [place] [address] Care Team Providers Care Crude Oil Driver Name Role Phone Unavailable Primary Care Provider [...] DTaP,Tdap,and Td Vaccines (1 - Tdap) 1977 Pneumococcal Vaccine: 50+ Ye ars (1 of 1 - PCV) 2008 Zoster Vaccines (1 of 2) 2008 COVID-19 Vaccine ( - 2023-2 5 season) 2024 Influenza Vaccine (#1) 2025 RSV Immunization Adult Patie nts (1 [...] Documents on File Type Date Recorded Patient Cw Operator Expl anation Health Care Decision (hx) 06/28/2020 AD BONDS DIRECTIVE Health Care Decision (hx) 06/25/2020 AD BONDS DIRECTIVE
== END 2024-11-18 11:08 | disposition home or self-care (01) ==
LOC: HO.HCC 10:50
PROVIDERS: PCP Family Medicine; Visit Provider Clinical Nurse Specialist Psychiatric/Mental Health
DX: F11.21 Opioid dependence, in remission (principal)
CPT/HCPCS: 99213

== ENCOUNTER → 2024-11-18 10:50 | Outpatient (BNVA) | payer MEDICARE, MEDICAID, SELFPAY | PROVIDERS: PCP Family Medicine; Visit Provider Clinical Nurse Specialist Psychiatric/Mental Health | DX: F11.21 Opioid dependence, in remission (principal); F17.210 Nicotine dependence, cigarettes, uncomplicated; Z71.6 Tobacco abuse counseling | CPT/HCPCS: 99212 ==

== ENCOUNTER 2024-12-17 10:05 | Outpatient (AMB) | payer MEDICARE, MEDICAID, SELFPAY ==
--- NOTE | 2024-12-17 10:12 | A.OFFVIS_ITS ---
Vital Signs 12/17/24 10:13 Height 5 ft 2 in Weight 178 lb BMI 32.6 BP 130/78 Pulse 90 Pulse Oximetry (%) 98 Intake Visit Reasons: MAT Allergies lorazepam Allergy (Mild, Verified 12/17/24 10:14) Itching, rash HPI Comments Details: The patient is a 64-year-old female presents for a follow-up visit r/t WALT in sustained remission. Denies use of opiates, alcohol, or other substances. Reports continuing to feel stable on buprenorphine-naloxone 8-2 mg tablets BID. [facility] Medical History Hypertension Cocaine use disorder Not immune to hepatitis B virus Hepatitis A antibody positive Leukocytosis Hypercholesterolemia Diabetes Opioid use disorder Social History (Updated 11/18/24 @ 11:06 by Wilma Jauregui NP-C) Alcohol intake: never Cigarettes Per Day: 5 Years Smoked: 40 Review of Systems Const All systems reviewed & are unremarkable except as noted in HPI and below Physical Exam Vital Signs: Last Vital Signs Pulse 90 12/17/24 10:13 BP 130/78 12/17/24 10:13 Pulse Ox 98 12/17/24 10:13 BMI result Body Mass Index 32.6 Assessment & Plan Assessment & Plan (1) Opioid use disorder, moderate, in sustained remission: Code(s): F11.21 - Opioid dependence, in remission Category: Medical Plan The plan of care is to continue with buprenorphine-naloxone 8-2 mg tables BID. Follow up in two months or sooner, if needed. Medications: Refilled buprenorphine-naloxone 8-2 mg 1 tab sublingual BID 60 tabs 1RF 30 days Patient Instructions: - Continue with buprenorphine-naloxone as prescribed. - Follow up in two months or sooner, if needed. - Call with questions, concerns, or to report side effects/new onset of symptoms to [facility]. - The patient verbalized understanding and agreed with plan of care. Coding Level of Care Code Est Pt Level 3 (14927) Diagnoses Opioid use disorder, moderate, in sustained remission F11.21
[2024-12-17 10:13] VITALS: BP 130/78; PULSE 90; O2SAT 98; BMI 32.6
--- OUTSIDE RECORDS SUMMARY | 2024-12-17 11:03 | XMS_ITS | Patient Health Record ---
Author Organization [facility] Address [address] [place] [id number] Care Team Providers Care Linux Support Engineer Name Role Phone Austin Jane Unavailable [phone] Reason For Referral No Information Plan Of Treatment No Information
--- OUTSIDE RECORDS SUMMARY | 2024-12-17 11:03 | XMS_ITS | Clinical Summary ---
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
== END 2024-12-17 10:23 | disposition home or self-care (01) ==
LOC: HO.HCC 10:05
PROVIDERS: PCP Family Medicine; Visit Provider Clinical Nurse Specialist Psychiatric/Mental Health
DX: F11.21 Opioid dependence, in remission (principal)
CPT/HCPCS: 99213

== ENCOUNTER → 2024-12-17 10:05 | Outpatient (BNVA) | payer MEDICARE, MEDICAID, SELFPAY | PROVIDERS: PCP Family Medicine; Visit Provider Clinical Nurse Specialist Psychiatric/Mental Health | DX: F11.21 Opioid dependence, in remission (principal) | CPT/HCPCS: 99212 ==

== ENCOUNTER 2025-02-19 10:27 | Outpatient (AMB) | payer MEDICARE, MEDICAID, SELFPAY ==
[2025-02-19 10:34] VITALS: BP 140/80; PULSE 88; O2SAT 94
--- NOTE | 2025-02-19 10:34 | MHC.OFFVIS ---
Vital Signs 02/19/25 10:34 BP 140/80 H Pulse 88 Pulse Oximetry (%) 94 Intake Visit Reasons: Mat Allergies lorazepam Allergy (Mild, Verified 02/19/25 10:34) Itching, rash HPI Comments Details: A 64-year-old female presents for a follow up visit r/t WALT in sustained remission with buprenorphine-naloxone 8-2 mg BID. Denies use of opiates, alcohol, and other substances does continue to smoke half a pack of cigarettes per day. Reports son moved back home and this makes her happy. [facility] Medical History Hypertension Cocaine use disorder Not immune to hepatitis B virus Hepatitis A antibody positive Leukocytosis Hypercholesterolemia Diabetes Opioid use disorder Social History Alcohol intake: never Cigarettes Per Day: 5 Years Smoked: 40 Review of Systems Const All systems reviewed & are unremarkable except as noted in HPI and below Physical Exam Vital Signs: Last Vital Signs Pulse 88 02/19/25 10:34 BP 140/80 H 02/19/25 10:34 Pulse Ox 94 02/19/25 10:34 Const General: cooperative Assessment & Plan Assessment & Plan (1) Opioid use disorder, moderate, in sustained remission: Code(s): F11.21 - Opioid dependence, in remission Category: Medical Plan The plan of care is to continue with buprenorphine-naloxone 8-2 mg BID and engage in risk reduction activities to minimize cigarette use. Follow-up in 2 months or sooner if needed. Medications: Refilled buprenorphine-naloxone 8-2 mg 1 tab sublingual BID 60 tabs 1RF 30 days Patient Instructions: - Continue with buprenorphine-naloxone as prescribed. - Engage in risk reduction activities to minimize cigarette use. - Follow-up in 2 months or sooner if needed. - Call with questions, concerns, or to report side effects/new onset of symptoms to [facility]. - The patient verbalized understanding and agreed with plan of care. Coding Level of Care Code Est Pt Level 3 (52117) Diagnoses Opioid use disorder, moderate, in sustained remission F11.21
== END 2025-02-19 11:00 | disposition home or self-care (01) ==
LOC: HO.HCC 10:27
PROVIDERS: PCP Family Medicine; Visit Provider Clinical Nurse Specialist Psychiatric/Mental Health
DX: F11.21 Opioid dependence, in remission (principal)
CPT/HCPCS: 99213

== ENCOUNTER → 2025-02-19 10:27 | Outpatient (BNVA) | payer MEDICARE, MEDICAID, SELFPAY | PROVIDERS: PCP Family Medicine; Visit Provider Clinical Nurse Specialist Psychiatric/Mental Health | DX: F11.21 Opioid dependence, in remission (principal) | CPT/HCPCS: 99212 ==